=== PATIENT | female | born 1965 | race Caucasian/White ===

== ENCOUNTER 2023-04-10 17:02 | Inpatient (IN) | payer MEDICAID, OTHER ==
[~2023-04-10] VITALS: Ht 157.5 cm; Wt 104.0 kg
[~2023-04-10 17:02] MED LIST: ATOR20TA PO; GABA-1181 PO; GLIM4 PO; LEVO125T95 PO; LEVO200 PO; MELA5TAB40 PO; METF-1211 PO; NALT50TA PO; NYST15PO4 TP; OLAN5TAB52 PO; OMEG-135 PO; PALI117D IM; PARO-37 PO
[2023-04-10 18:02] LABS: BASOPHILS % (AUTO) 0.6 % (0.0-2.0); EOSINOPHILS % (AUTO) 1.4 % (1.0-6.0); HEMATOCRIT 38.3 % (36-46); HEMOGLOBIN 12.9 g/dL (12.0-16.0); LYMPHOCYTES # (AUTO) 2.3 K/uL (1.0-4.8); MEAN CORPUSCULAR HEMOGLOBIN 29.1 pg (26.0-34.0); MEAN CORPUSCULAR HGB CONC 33.8 G/dL (31.0-37.0); MEAN CORPUSCULAR VOLUME 86 fL (80-100); MONOCYTES # (AUTO) 0.6 K/uL (0.1-1.0); MONOCYTES % (AUTO) 6.3 % (2.0-9.0); NEUTROPHILS # (AUTO) 5.8 K/uL (1.8-7.7); NEUTROPHILS % (AUTO) 65.7 % (40.0-70.0); PLATELET COUNT (AUTO) 273 K/uL (150-450); RED BLOOD CELL COUNT(AUTO) 4.45 MIL/uL (4.00-5.20); RED CELL DISTRIBUTION WIDTH 14.9 % (11.5-14.5); WHITE BLOOD COUNT (AUTO) 8.8 K/uL (4.5-11.0)
[2023-04-10 18:16] LABS: COVID AG,FIA SOURCE NASAL SWAB
[2023-04-10] MEDS ORDERED: LORazepam 2 MG/ML VIAL IM ONE (18:30)
[2023-04-10] MEDS ORDERED: DiphenhydrAMINE HCL 50 MG/ML VIAL IM ONE (18:30)
[2023-04-10] MEDS ORDERED: ASPI-1444 PO (18:36)
[2023-04-10] MEDS ORDERED: OLAN5TAB77 PO (18:36)
[2023-04-10] MEDS ORDERED: ATEN-73 PO (18:36)
[2023-04-10] MEDS ORDERED: METF-81 PO (18:36)
[2023-04-10] MEDS ORDERED: ATOR20TA65 PO (18:36)
[2023-04-10] MEDS ORDERED: NPH,100I SQ (18:36)
[2023-04-10] MEDS ORDERED: LEVO200 PO (18:36)
[2023-04-10] MEDS ORDERED: INSU100V3 SQ (18:36)
[2023-04-10 18:46] LABS: SARS-COV2 (COVID) ANTIGEN,FIA Negative (Negative)
[2023-04-10 19:19] LABS: ALCOHOL, BLOOD (SERUM) < 3 mg/dL (0-10)
[2023-04-10 19:23] LABS: ANION GAP 12 mmol/L (8-16); CALCIUM, TOTAL 9.9 mg/dL (8.8-10.5); CARBON DIOXIDE 27 mmol/L (22-29); CHLORIDE 101 mmol/L (98-107); CREATININE 0.72 mg/dL (0.60-1.30); GLOMERULAR FILTR. RATE CALC > 60 mL/min (>60); GLUCOSE,RANDOM 176 mg/dL (70-110); POTASSIUM 3.8 mmol/L (3.5-5.1); SODIUM SERUM 140 mmol/L (136-145); UREA NITROGEN, BLOOD 8 mg/dL (7-18)
[2023-04-10 19:29] LABS: ALANINE AMINOTRANSFERASE 33 U/L (12-78); ALBUMIN 4.2 g/dL (3.4-5.0); ALKALINE PHOSPHATASE 109 U/L (46-116); ASPARTATE AMINOTRANSFERASE 35 U/L (15-37); BILIRUBIN,TOTAL 0.3 mg/dL (0.1-1.0); TOTAL PROTEIN, SERUM 8.6 g/dL (6.4-8.2)
[2023-04-10] MEDS ORDERED: LEVOTHYROXINE SODIUM 200 MCG TABLET PO ONE (19:30)
[2023-04-10] MEDS ORDERED: ZOLPIDEM TARTRATE 10 MG TABLET PO PRN (20:45)
[2023-04-10 23:05] VITALS: BP 144/94; PULSE 81; RESP 18; TEMP 97.9; O2SAT 97
[2023-04-10 23:21] LABS: GLUCOMETER DEV NAME(LOC) BV3S.; GLUCOSE,POINT OF CARE 168 MG/DL (70-110)
[2023-04-11 08:35] VITALS: BP 143/77; PULSE 78; RESP 16; TEMP 98.2; O2SAT 96
[2023-04-11] MEDS ORDERED: PETROLATUM,WHITE 28 GM JELLY TP PRN ×2 (09:45→15:15)
[2023-04-11] MEDS ORDERED: CloNIDine HCL 0.1 MG TABLET PO PRN (15:15)
[2023-04-11] MEDS ORDERED: MAGNESIUM HYDROXIDE SUSPENSION 30 ML UDCUP PO PRN (15:15)
[2023-04-11] MEDS ORDERED: LOPERAMIDE HCL 2 MG CAPSULE PO PRN (15:15)
[2023-04-11] MEDS ORDERED: ONDANSETRON HCL 4 MG TABLET PO PRN (15:15)
[2023-04-11] MEDS ORDERED: MAG HYDROX/ALUMINUM HYD/SIMETH ES 30 ML SUSPENSION UDCUP PO PRN (15:15)
[2023-04-11] MEDS ORDERED: ACETAMINOPHEN 325 MG TABLET PO PRN (15:15)
[2023-04-11] MEDS ORDERED: ALBUTEROL SULFATE HFA 90 MCG/PUFF 8 GM INHALER IH PRN (15:15)
[2023-04-11] MEDS ORDERED: DOCUSATE SODIUM 100 MG CAPSULE PO PRN (15:15)
[2023-04-11] MEDS ORDERED: NICOTINE 14 MG/24 HOUR PATCH TD PRN (15:15)
[2023-04-11] MEDS: MetFORMIN HCL 500 MG ER TABLET PO SCH (17:00)
[2023-04-11] MEDS ORDERED: GABAPENTIN 300 MG CAPSULE PO SCH (17:00)
[2023-04-11] MEDS: GABAPENTIN 300 MG CAPSULE PO SCH (17:14)
[2023-04-11] MEDS: GuaiFENesin/D-METHORPHAN [SUGAR-FREE] 200-20MG/10 ML SYRUP UDCUP PO PRN (17:18)
[2023-04-11] MEDS: OLANZapine 10 MG TABLET PO SCH (20:37)
[2023-04-11] MEDS: MELATONIN 5 MG TABLET PO SCH (20:38)
[2023-04-11 21:03] VITALS: BP 103/58; PULSE 80; RESP 18; TEMP 98.2; O2SAT 96
[2023-04-12] MEDS: IBUPROFEN 400 MG TABLET PO PRN (04:03)
[2023-04-12 04:04] VITALS: BP 127/70
[2023-04-12] MEDS: MetFORMIN HCL 500 MG ER TABLET PO SCH ×2 (06:26→16:29)
[2023-04-12] MEDS: GLIMEPIRIDE 4 MG TABLET PO SCH (06:26)
[2023-04-12] MEDS: LEVOTHYROXINE SODIUM 200 MCG TABLET PO SCH (06:27)
[2023-04-12] MEDS: ATENOLOL 25 MG TABLET PO SCH (08:14)
[2023-04-12] MEDS: ATORVASTATIN CALCIUM 20 MG TABLET PO SCH (08:14)
[2023-04-12] MEDS: ASPIRIN 81 MG DR TABLET PO SCH (08:14)
[2023-04-12] MEDS: LORazepam 2 MG TABLET PO PRN (08:14)
[2023-04-12] MEDS: GABAPENTIN 300 MG CAPSULE PO SCH ×2 (08:14→16:30)
[2023-04-12 08:43] LABS: HEMOGLOBIN A1C 9.3 % (3.8-5.6)
[2023-04-12 08:55] LABS: CHOL/HDL RATIO 3.5 (3.9-5.7); THYROID STIMULATING HORMONE 0.44 uIU/mL (0.36-3.74)
[2023-04-12 10:03] VITALS: BP 137/85; PULSE 70; RESP 18; TEMP 98; O2SAT 96
[2023-04-12] MEDS: GuaiFENesin/D-METHORPHAN [SUGAR-FREE] 200-20MG/10 ML SYRUP UDCUP PO PRN (20:19)
[2023-04-12] MEDS: OLANZapine 10 MG TABLET PO SCH (20:19)
[2023-04-12] MEDS: MELATONIN 5 MG TABLET PO SCH (20:19)
[2023-04-12 21:06] VITALS: BP 128/53; PULSE 75; RESP 17; TEMP 98; O2SAT 97
[2023-04-13] MEDS: GLIMEPIRIDE 4 MG TABLET PO SCH (06:22)
[2023-04-13] MEDS: MetFORMIN HCL 500 MG ER TABLET PO SCH ×2 (06:22→16:24)
[2023-04-13] MEDS: LEVOTHYROXINE SODIUM 200 MCG TABLET PO SCH (06:22)
[2023-04-13] MEDS: ASPIRIN 81 MG DR TABLET PO SCH (08:10)
[2023-04-13] MEDS: GABAPENTIN 300 MG CAPSULE PO SCH ×2 (08:10→16:15)
[2023-04-13] MEDS: QUEtiapine FUMARATE 100 MG TABLET PO PRN (08:10)
[2023-04-13] MEDS: ATORVASTATIN CALCIUM 20 MG TABLET PO SCH (08:10)
[2023-04-13] MEDS: ATENOLOL 25 MG TABLET PO SCH (08:10)
[2023-04-13] MEDS: LORazepam 2 MG TABLET PO PRN ×2 (08:10→16:15)
[2023-04-13 08:54] VITALS: BP 172/84; PULSE 77; RESP 18; TEMP 97.9; O2SAT 95
[2023-04-13] MEDS: MELATONIN 5 MG TABLET PO SCH (20:33)
[2023-04-13] MEDS: OLANZapine 10 MG TABLET PO SCH (20:33)
[2023-04-13 22:04] VITALS: BP 144/74; PULSE 73; TEMP 95.6; O2SAT 98
[2023-04-14] MEDS: MetFORMIN HCL 500 MG ER TABLET PO SCH ×2 (06:05→16:08)
[2023-04-14] MEDS: LEVOTHYROXINE SODIUM 200 MCG TABLET PO SCH (06:06)
[2023-04-14] MEDS: GLIMEPIRIDE 4 MG TABLET PO SCH (06:23)
[2023-04-14] MEDS: ATORVASTATIN CALCIUM 20 MG TABLET PO SCH (08:14)
[2023-04-14] MEDS: ATENOLOL 25 MG TABLET PO SCH (08:14)
[2023-04-14] MEDS: ASPIRIN 81 MG DR TABLET PO SCH (08:14)
[2023-04-14] MEDS: GABAPENTIN 300 MG CAPSULE PO SCH ×2 (08:14→16:08)
[2023-04-14 10:31] VITALS: BP 139/80; PULSE 96; RESP 17; TEMP 98.6; O2SAT 81
[2023-04-14 20:11] VITALS: BP 132/60; PULSE 100; RESP 17; TEMP 97.4; O2SAT 100
[2023-04-14] MEDS: MELATONIN 5 MG TABLET PO SCH (20:36)
[2023-04-14] MEDS: OLANZapine 10 MG TABLET PO SCH (20:36)
[2023-04-14] MEDS: IBUPROFEN 400 MG TABLET PO PRN (23:23)
[2023-04-14 23:24] VITALS: RESP 18
[2023-04-15 00:23] VITALS: RESP 18
[2023-04-15] MEDS: MetFORMIN HCL 500 MG ER TABLET PO SCH ×2 (06:31→16:11)
[2023-04-15] MEDS: LEVOTHYROXINE SODIUM 200 MCG TABLET PO SCH (06:31)
[2023-04-15] MEDS: GLIMEPIRIDE 4 MG TABLET PO SCH (06:33)
[2023-04-15 07:42] LABS: APPEARANCE,URINE CLEAR (CLEAR); BILIRUBIN,URINE NEGATIVE (NEGATIVE); COLOR,URINE LIGHT YELLOW (YELLOW); GLUCOSE, URINE (UA) >=1000 mg/dL (NEGATIVE); KETONES,URINE NEGATIVE (NEGATIVE); LEUKOCYTE ESTERASE ,URINE NEGATIVE (NEGATIVE); NITRATE,URINE NEGATIVE (NEGATIVE); OCCULT BLOOD,URINE NEGATIVE (NEGATIVE); PH,URINE 6.5 (5.0-8.0); PH,URINE DRUG SCREEN 6.5 (5.0-8.0); PROTEIN,URINE TRACE mg/dL (NEGATIVE); SPECIFIC GRAVITIY, URINE 1.012 (1.003-1.030); UROBILINOGEN,URINE <=1.0 mg/dL (<=1.0)
[2023-04-15 07:49] LABS: ALCOHOL, URINE DRUG SCREEN NEGATIVE (NEGATIVE); AMPHET/METH SCREEN,URINE NEGATIVE (NEGATIVE); BARBITURATE SCREEN, URINE NEGATIVE (NEGATIVE); BENZODIAZEPINES SCREEN,URINE NEGATIVE (NEGATIVE); CANNABINOID SCREEN,URINE NEGATIVE (NEGATIVE); COCAINE SCREEN,URINE NEGATIVE (NEGATIVE); METHADONE SCREEN, URINE NEGATIVE (NEGATIVE); OPIATE SCREEN,URINE NEGATIVE (NEGATIVE); PHENCYCLIDINE SCREEN,URINE NEGATIVE (NEGATIVE)
[2023-04-15 07:54] LABS: BACTERIA,URINE None Seen /HPF (None Seen); RBC,URINE None Seen /HPF (0-2); SQUAMOUS EPITHELIAL CELL,UR Few /LPF (None Seen); WBC,URINE None Seen /HPF (0-5)
[2023-04-15] MEDS: GABAPENTIN 300 MG CAPSULE PO SCH ×2 (08:25→16:11)
[2023-04-15] MEDS: ATORVASTATIN CALCIUM 20 MG TABLET PO SCH (08:25)
[2023-04-15] MEDS: ASPIRIN 81 MG DR TABLET PO SCH (08:25)
[2023-04-15] MEDS: LORazepam 2 MG TABLET PO PRN (08:25)
[2023-04-15] MEDS: QUEtiapine FUMARATE 100 MG TABLET PO PRN (08:25)
[2023-04-15] MEDS: ATENOLOL 25 MG TABLET PO SCH (08:25)
[2023-04-15 09:13] VITALS: BP 117/67; PULSE 66; RESP 17; TEMP 98.2; O2SAT 96
[2023-04-15] MEDS: MELATONIN 5 MG TABLET PO SCH (21:01)
[2023-04-15] MEDS: OLANZapine 10 MG TABLET PO SCH (21:01)
[2023-04-15 21:39] VITALS: BP 108/65; PULSE 68; RESP 18; TEMP 97.3; O2SAT 97
[2023-04-16] MEDS: LEVOTHYROXINE SODIUM 200 MCG TABLET PO SCH (06:24)
[2023-04-16] MEDS: MetFORMIN HCL 500 MG ER TABLET PO SCH ×2 (06:34→17:27)
[2023-04-16] MEDS: GLIMEPIRIDE 4 MG TABLET PO SCH (06:34)
[2023-04-16] MEDS: ATENOLOL 25 MG TABLET PO SCH (08:19)
[2023-04-16] MEDS: GABAPENTIN 300 MG CAPSULE PO SCH ×2 (08:19→17:27)
[2023-04-16] MEDS: ATORVASTATIN CALCIUM 20 MG TABLET PO SCH (08:19)
[2023-04-16] MEDS: ASPIRIN 81 MG DR TABLET PO SCH (08:19)
[2023-04-16 08:25] VITALS: BP 127/70; PULSE 73; RESP 16; TEMP 97.6; O2SAT 96
[2023-04-16] MEDS: LORazepam 2 MG TABLET PO PRN (14:23)
[2023-04-16 20:16] VITALS: BP 117/75; PULSE 75; RESP 17; TEMP 97.8
[2023-04-16] MEDS: MELATONIN 5 MG TABLET PO SCH (20:46)
[2023-04-16] MEDS: OLANZapine 10 MG TABLET PO SCH (20:46)
[2023-04-17] MEDS: MetFORMIN HCL 500 MG ER TABLET PO SCH ×2 (06:11→16:24)
[2023-04-17] MEDS: LEVOTHYROXINE SODIUM 200 MCG TABLET PO SCH (06:11)
[2023-04-17] MEDS: GLIMEPIRIDE 4 MG TABLET PO SCH (06:11)
[2023-04-17 08:06] VITALS: BP 143/69; PULSE 72; RESP 16; TEMP 97.6; O2SAT 96
[2023-04-17] MEDS: GABAPENTIN 300 MG CAPSULE PO SCH ×2 (08:22→16:24)
[2023-04-17] MEDS: ATENOLOL 25 MG TABLET PO SCH (08:23)
[2023-04-17] MEDS: ASPIRIN 81 MG DR TABLET PO SCH (08:23)
[2023-04-17] MEDS: ATORVASTATIN CALCIUM 20 MG TABLET PO SCH (08:23)
[2023-04-17] MEDS ORDERED: OLAN10TA74 PO (18:19)
[2023-04-17] MEDS ORDERED: GABA-1181 PO (18:21)
== END 2023-04-17 21:08 | disposition left against medical advice (07) | DRG 750 ==
LOC: EMS 17:03 → B3A 20:53
PROVIDERS: ADMIT Psychiatry & Neurology Child & Adolescent Psychiatry; ATTEND Psychiatry & Neurology Child & Adolescent Psychiatry
DX: F20.9 Schizophrenia, unspecified (principal); E11.42 Type 2 diabetes mellitus with diabetic polyneuropathy; E03.9 Hypothyroidism, unspecified; Z20.822 Contact with and (suspected) exposure to COVID-19; Z88.0 Allergy status to penicillin; I10 Essential (primary) hypertension; E78.5 Hyperlipidemia, unspecified; G47.00 Insomnia, unspecified; E05.80 Other thyrotoxicosis without thyrotoxic crisis or storm
CPT/HCPCS: 80053; 80061; 80307; 81001; 82962; 83036; 84439; 84443; 85025; G0480; J1200; J2060; J3535; Q9967

== ENCOUNTER 2023-05-01 08:06 | Inpatient (IN) | payer MEDICAID, OTHER ==
[~2023-05-01] VITALS: Ht 157.5 cm; Wt 105.2 kg
[~2023-05-01 08:06] MED LIST changes: +ASPI-1444 PO; +ATEN-73 PO; -ATOR20TA PO; +ATOR20TA65 PO; -LEVO125T95 PO; -MELA5TAB40 PO; -METF-1211 PO; +METF-81 PO; -NALT50TA PO; -NYST15PO4 TP; +OLAN10TA74 PO; -OLAN5TAB52 PO; -OMEG-135 PO; -PALI117D IM; -PARO-37 PO
[2023-05-01 09:16] LABS: EOSINOPHILS % (AUTO) 1.1 % (1.0-6.0); HEMATOCRIT 40.9 % (36-46); HEMOGLOBIN 13.6 g/dL (12.0-16.0); LYMPHOCYTES # (AUTO) 1.4 K/uL (1.0-4.8); MEAN CORPUSCULAR HEMOGLOBIN 28.8 pg (26.0-34.0); MEAN CORPUSCULAR HGB CONC 33.2 G/dL (31.0-37.0); MEAN CORPUSCULAR VOLUME 87 fL (80-100); MONOCYTES # (AUTO) 0.7 K/uL (0.1-1.0); MONOCYTES % (AUTO) 6.3 % (2.0-9.0); NEUTROPHILS % (AUTO) 77.6 % (40.0-70.0); PLATELET COUNT (AUTO) 291 K/uL (150-450); RED BLOOD CELL COUNT(AUTO) 4.71 MIL/uL (4.00-5.20); RED CELL DISTRIBUTION WIDTH 14.9 % (11.5-14.5); WHITE BLOOD COUNT (AUTO) 10.3 K/uL (4.5-11.0)
[2023-05-01] MEDS ORDERED: QUEtiapine FUMARATE 100 MG TABLET PO PRN (09:30)
[2023-05-01] MEDS ORDERED: ZOLPIDEM TARTRATE 10 MG TABLET PO PRN (09:30)
[2023-05-01 09:34] LABS: ALCOHOL, BLOOD (SERUM) < 3 mg/dL (0-10)
[2023-05-01 09:37] LABS: ALANINE AMINOTRANSFERASE 42 U/L (12-78); ALBUMIN 4.4 g/dL (3.4-5.0); ALKALINE PHOSPHATASE 109 U/L (46-116); ANION GAP 12 mmol/L (8-16); ASPARTATE AMINOTRANSFERASE 40 U/L (15-37); BILIRUBIN,TOTAL 0.5 mg/dL (0.1-1.0); CALCIUM, TOTAL 10.4 mg/dL (8.8-10.5); CARBON DIOXIDE 25 mmol/L (22-29); CHLORIDE 98 mmol/L (98-107); CREATININE 0.86 mg/dL (0.60-1.30); GLOMERULAR FILTR. RATE CALC > 60 mL/min (>60); POTASSIUM 4.1 mmol/L (3.5-5.1); SODIUM SERUM 135 mmol/L (136-145); TOTAL PROTEIN, SERUM 9.1 g/dL (6.4-8.2); UREA NITROGEN, BLOOD 14 mg/dL (7-18)
[2023-05-01 09:46] LABS: COVID AG,FIA SOURCE NASAL SWAB
[2023-05-01 09:47] LABS: GLUCOSE,RANDOM 417 mg/dL (70-110)
[2023-05-01 10:51] LABS: SARS-COV2 (COVID) ANTIGEN,FIA Negative (Negative)
[2023-05-01 11:43] LABS: APPEARANCE,URINE CLEAR (CLEAR); BILIRUBIN,URINE NEGATIVE (NEGATIVE); COLOR,URINE LIGHT YELLOW (YELLOW); GLUCOSE, URINE (UA) >=1000 mg/dL (NEGATIVE); KETONES,URINE NEGATIVE (NEGATIVE); LEUKOCYTE ESTERASE ,URINE NEGATIVE (NEGATIVE); NITRATE,URINE NEGATIVE (NEGATIVE); OCCULT BLOOD,URINE NEGATIVE (NEGATIVE); PROTEIN,URINE TRACE mg/dL (NEGATIVE); SPECIFIC GRAVITIY, URINE 1.037 (1.003-1.030); UROBILINOGEN,URINE <=1.0 mg/dL (<=1.0)
[2023-05-01 11:55] LABS: BACTERIA,URINE None Seen /HPF (None Seen); RBC,URINE None Seen /HPF (0-2); SQUAMOUS EPITHELIAL CELL,UR Rare /LPF (None Seen); WBC,URINE 0-2 /HPF (0-5)
[2023-05-01 11:56] LABS: ALCOHOL, URINE DRUG SCREEN NEGATIVE (NEGATIVE); AMPHET/METH SCREEN,URINE NEGATIVE (NEGATIVE); BARBITURATE SCREEN, URINE NEGATIVE (NEGATIVE); BENZODIAZEPINES SCREEN,URINE NEGATIVE (NEGATIVE); CANNABINOID SCREEN,URINE NEGATIVE (NEGATIVE); COCAINE SCREEN,URINE NEGATIVE (NEGATIVE); METHADONE SCREEN, URINE NEGATIVE (NEGATIVE); OPIATE SCREEN,URINE NEGATIVE (NEGATIVE); PHENCYCLIDINE SCREEN,URINE NEGATIVE (NEGATIVE)
[2023-05-01] MEDS: INSULIN REGULAR, HUMAN 100 UNITS/ML SQ ONE (12:44)
[2023-05-01 18:11] LABS: GLUCOMETER DEV NAME(LOC) ERT.5; GLUCOSE,POINT OF CARE 382 MG/DL (70-110)
[2023-05-01 18:11] LABS: GLUCOMETER DEV NAME(LOC) ERT.5; GLUCOSE,POINT OF CARE 392 MG/DL (70-110)
[2023-05-01] MEDS: SODIUM CHLORIDE 0.9% 1,000 ML IV ONE (19:01)
[2023-05-01] MEDS: INSULIN REGULAR, HUMAN 100 UNITS/ML IVP ONE (19:01)
[2023-05-02 06:12] LABS: GLUCOMETER DEV NAME(LOC) ERT.5; GLUCOSE,POINT OF CARE 265 MG/DL (70-110)
[2023-05-02 09:11] LABS: GLUCOMETER DEV NAME(LOC) ERT.5; GLUCOSE,POINT OF CARE 280 MG/DL (70-110)
[2023-05-02] MEDS: ACETAMINOPHEN 500 MG TABLET PO PRN (12:12)
[2023-05-02 13:49] VITALS: BP 130/60; PULSE 81; RESP 18; TEMP 98; O2SAT 97
[2023-05-02] MEDS ORDERED: GLUCAGON,HUMAN RECOMBINANT 1 MG VIAL IM PRN (14:15)
[2023-05-02] MEDS ORDERED: PNEUMOCOCCAL VACCINE POLYVALENT 0.5 ML SYRINGE [PPSV23] IM. ONE (14:15)
[2023-05-02 14:16] LABS: GLUCOMETER DEV NAME(LOC) BV3S.; GLUCOSE,POINT OF CARE 420 MG/DL (70-110)
[2023-05-02 14:26] LABS: GLUCOMETER DEV NAME(LOC) ERT.5; GLUCOSE,POINT OF CARE 318 MG/DL (70-110)
[2023-05-02] MEDS: NYSTATIN 30 GM CREAM TP SCH (16:46)
[2023-05-02] MEDS: MetFORMIN HCL 500 MG TABLET PO SCH (16:46)
[2023-05-02] MEDS: INSULIN LISPRO 100 UNITS/ML SQ PRN (16:59)
[2023-05-02] MEDS ORDERED: MetFORMIN HCL 500 MG TABLET PO SCH (17:00)
[2023-05-02 17:06] LABS: GLUCOMETER DEV NAME(LOC) BV3S.; GLUCOSE,POINT OF CARE 389 MG/DL (70-110)
[2023-05-02 20:25] VITALS: BP 128/67; PULSE 69; RESP 18; TEMP 97.1; O2SAT 95
[2023-05-03] MEDS: LEVOTHYROXINE SODIUM 200 MCG TABLET PO SCH (05:44)
[2023-05-03 05:56] LABS: GLUCOMETER DEV NAME(LOC) BV3S.; GLUCOSE,POINT OF CARE 317 MG/DL (70-110)
[2023-05-03] MEDS: GLIMEPIRIDE 4 MG TABLET PO SCH (06:36)
[2023-05-03] MEDS: GABAPENTIN 300 MG CAPSULE PO SCH (08:15)
[2023-05-03] MEDS: ATENOLOL 25 MG TABLET PO SCH (08:15)
[2023-05-03] MEDS: ASPIRIN 81 MG DR TABLET PO SCH (08:15)
[2023-05-03] MEDS: ATORVASTATIN CALCIUM 20 MG TABLET PO SCH (08:16)
[2023-05-03 09:09] VITALS: BP 106/56; PULSE 72; RESP 18; TEMP 97.7; O2SAT 95
[2023-05-03] MEDS: OLANZapine 5 MG RAPDIS TABLET PO SCH (09:31)
[2023-05-03 16:36] LABS: GLUCOMETER DEV NAME(LOC) BV3S.; GLUCOSE,POINT OF CARE 359 MG/DL (70-110)
[2023-05-03] MEDS ORDERED: NICOTINE 14 MG/24 HOUR PATCH TD PRN (20:15)
[2023-05-03] MEDS ORDERED: DOCUSATE SODIUM 100 MG CAPSULE PO PRN (20:15)
[2023-05-03] MEDS ORDERED: LOPERAMIDE HCL 2 MG CAPSULE PO PRN (20:15)
[2023-05-03] MEDS ORDERED: IBUPROFEN 400 MG TABLET PO PRN (20:15)
[2023-05-03] MEDS ORDERED: CloNIDine HCL 0.1 MG TABLET PO PRN (20:15)
[2023-05-03] MEDS ORDERED: PETROLATUM,WHITE 28 GM JELLY TP PRN (20:15)
[2023-05-03] MEDS ORDERED: ONDANSETRON HCL 4 MG TABLET PO PRN (20:15)
[2023-05-03] MEDS ORDERED: ALBUTEROL SULFATE HFA 90 MCG/PUFF 8 GM INHALER IH PRN (20:15)
[2023-05-03] MEDS ORDERED: GuaiFENesin/D-METHORPHAN [SUGAR-FREE] 200-20MG/10 ML SYRUP UDCUP PO PRN (20:15)
[2023-05-03] MEDS ORDERED: MAG HYDROX/ALUMINUM HYD/SIMETH ES 30 ML SUSPENSION UDCUP PO PRN (20:15)
[2023-05-03] MEDS ORDERED: MAGNESIUM HYDROXIDE SUSPENSION 30 ML UDCUP PO PRN (20:15)
[2023-05-03 20:44] VITALS: BP 116/69; PULSE 60; RESP 20; TEMP 97.9; O2SAT 94
[2023-05-03] MEDS: OLANZapine 10 MG RAPDIS TABLET PO SCH (21:05)
[2023-05-03 21:26] LABS: GLUCOMETER DEV NAME(LOC) BV3S.; GLUCOSE,POINT OF CARE 248 MG/DL (70-110)
[2023-05-04 05:08] LABS: HEPATITIS C AB (EIA) Non Reactive (Non Reactive)
[2023-05-04 06:21] LABS: GLUCOMETER DEV NAME(LOC) BV3S.; GLUCOSE,POINT OF CARE 270 MG/DL (70-110)
[2023-05-04 08:33] LABS: HEMOGLOBIN A1C 10.1 % (3.8-5.6); THYROID STIMULATING HORMONE 4.59 uIU/mL (0.36-3.74)
[2023-05-04 11:16] LABS: GLUCOMETER DEV NAME(LOC) BV3S.; GLUCOSE,POINT OF CARE 339 MG/DL (70-110)
[2023-05-04 15:05] VITALS: BP 129/60; PULSE 73; RESP 18; TEMP 98; O2SAT 98
[2023-05-04 16:51] LABS: GLUCOMETER DEV NAME(LOC) BV3S.; GLUCOSE,POINT OF CARE 343 MG/DL (70-110)
[2023-05-04 20:36] LABS: GLUCOMETER DEV NAME(LOC) BV3S.; GLUCOSE,POINT OF CARE 279 MG/DL (70-110)
[2023-05-04 20:47] VITALS: BP 140/73; PULSE 64; RESP 18; TEMP 97.6; O2SAT 99
[2023-05-05 06:17] LABS: GLUCOMETER DEV NAME(LOC) BV3S.; GLUCOSE,POINT OF CARE 260 MG/DL (70-110)
[2023-05-05 08:16] VITALS: BP 130/74; PULSE 84; RESP 18; TEMP 98; O2SAT 96
[2023-05-05 11:46] LABS: GLUCOMETER DEV NAME(LOC) BV3S.; GLUCOSE,POINT OF CARE 296 MG/DL (70-110)
[2023-05-05 17:01] LABS: GLUCOMETER DEV NAME(LOC) BV3S.; GLUCOSE,POINT OF CARE 353 MG/DL (70-110)
[2023-05-05 20:51] LABS: GLUCOMETER DEV NAME(LOC) BV3S.; GLUCOSE,POINT OF CARE 224 MG/DL (70-110)
[2023-05-05 21:52] VITALS: BP 130/68; PULSE 67; RESP 18; TEMP 97.2
[2023-05-06 06:17] LABS: GLUCOMETER DEV NAME(LOC) BV3S.; GLUCOSE,POINT OF CARE 289 MG/DL (70-110)
[2023-05-06 08:11] VITALS: BP 138/64; PULSE 71; RESP 18; TEMP 97.8; O2SAT 97
[2023-05-06 11:31] LABS: GLUCOMETER DEV NAME(LOC) BV3S.; GLUCOSE,POINT OF CARE 283 MG/DL (70-110)
[2023-05-06 17:00] LABS: GLUCOMETER DEV NAME(LOC) BV3S.; GLUCOSE,POINT OF CARE 300 MG/DL (70-110)
[2023-05-06] MEDS: LORazepam 2 MG TABLET PO PRN (21:13)
[2023-05-06 21:15] VITALS: BP 136/73; PULSE 57; RESP 18; TEMP 97.8; O2SAT 96
[2023-05-06 21:16] LABS: GLUCOMETER DEV NAME(LOC) BV3S.; GLUCOSE,POINT OF CARE 294 MG/DL (70-110)
[2023-05-07 06:17] LABS: GLUCOMETER DEV NAME(LOC) BV3S.; GLUCOSE,POINT OF CARE 278 MG/DL (70-110)
[2023-05-07 10:04] VITALS: BP 123/71; PULSE 71; RESP 16; TEMP 98.9; O2SAT 96
[2023-05-07 12:16] LABS: GLUCOMETER DEV NAME(LOC) BV3S.; GLUCOSE,POINT OF CARE 289 MG/DL (70-110)
[2023-05-07 13:32] VITALS: RESP 18; O2SAT 97
[2023-05-07] MEDS: ACETAMINOPHEN 325 MG TABLET PO PRN (13:32)
[2023-05-07 14:32] VITALS: RESP 16; O2SAT 96
[2023-05-07 16:41] LABS: GLUCOMETER DEV NAME(LOC) BV3S.; GLUCOSE,POINT OF CARE 313 MG/DL (70-110)
[2023-05-07 20:21] LABS: GLUCOMETER DEV NAME(LOC) BV3S.; GLUCOSE,POINT OF CARE 237 MG/DL (70-110)
[2023-05-07 20:31] VITALS: BP 137/85; PULSE 63; RESP 18; TEMP 98.2; O2SAT 94
[2023-05-08 07:01] LABS: GLUCOMETER DEV NAME(LOC) BV3S.; GLUCOSE,POINT OF CARE 299 MG/DL (70-110)
[2023-05-08 09:20] VITALS: BP 126/73; PULSE 71; RESP 17; TEMP 97.9; O2SAT 98
[2023-05-08 11:41] LABS: GLUCOMETER DEV NAME(LOC) BV3S.; GLUCOSE,POINT OF CARE 260 MG/DL (70-110)
[2023-05-08 17:12] LABS: GLUCOMETER DEV NAME(LOC) BV3S.; GLUCOSE,POINT OF CARE 340 MG/DL (70-110)
[2023-05-08 21:01] LABS: GLUCOMETER DEV NAME(LOC) BV3S.; GLUCOSE,POINT OF CARE 294 MG/DL (70-110)
[2023-05-08 21:36] VITALS: BP 118/69; PULSE 63; RESP 18; TEMP 98.1; O2SAT 97
[2023-05-09 06:31] LABS: GLUCOMETER DEV NAME(LOC) BV3S.; GLUCOSE,POINT OF CARE 273 MG/DL (70-110)
[2023-05-09 08:27] VITALS: BP 136/66; PULSE 70; RESP 16; TEMP 98; O2SAT 96
[2023-05-09] MEDS: INSULIN GLARGINE,HUM.REC.ANLOG 100 UNITS/ML SQ SCH (21:40)
[2023-05-09 21:59] VITALS: BP 103/50; PULSE 95; RESP 18; TEMP 96.7; O2SAT 61
[2023-05-10 00:50] VITALS: BP 121/69; PULSE 60; RESP 18; TEMP 98.8
[2023-05-10 03:26] LABS: GLUCOMETER DEV NAME(LOC) BV3S.; GLUCOSE,POINT OF CARE 324 MG/DL (70-110)
[2023-05-10 03:26] LABS: GLUCOMETER DEV NAME(LOC) BV3S.; GLUCOSE,POINT OF CARE 293 MG/DL (70-110)
[2023-05-10 03:26] LABS: GLUCOMETER DEV NAME(LOC) BV3S.; GLUCOSE,POINT OF CARE 273 MG/DL (70-110)
[2023-05-10 06:16] LABS: GLUCOMETER DEV NAME(LOC) BV3S.; GLUCOSE,POINT OF CARE 257 MG/DL (70-110)
[2023-05-10 08:45] VITALS: BP 141/75; PULSE 63; RESP 16; TEMP 98.1
[2023-05-10 11:31] LABS: GLUCOMETER DEV NAME(LOC) BV3S.; GLUCOSE,POINT OF CARE 295 MG/DL (70-110)
[2023-05-10 16:51] LABS: GLUCOMETER DEV NAME(LOC) BV3S.; GLUCOSE,POINT OF CARE 331 MG/DL (70-110)
== END 2023-05-10 18:22 | disposition home or self-care (01) | DRG 750 ==
LOC: EMS 08:06 → B3A 05-02 10:50
PROVIDERS: ADMIT Psychiatry & Neurology Child & Adolescent Psychiatry; ATTEND Psychiatry & Neurology Child & Adolescent Psychiatry
DX: F20.0 Paranoid schizophrenia (principal); E11.40 Type 2 diabetes mellitus with diabetic neuropathy, unspecified; E03.9 Hypothyroidism, unspecified; E11.65 Type 2 diabetes mellitus with hyperglycemia; Z20.822 Contact with and (suspected) exposure to COVID-19; E78.5 Hyperlipidemia, unspecified; F15.10 Other stimulant abuse, uncomplicated; I10 Essential (primary) hypertension; Z88.0 Allergy status to penicillin; Z88.8 Allergy status to other drugs, medicaments and biological substances
CPT/HCPCS: 80053; 80061; 80307; 81001; 82962; 83036; 84443; 85025; 86803; 87081; 87340; 99285; G0480; J1815

== ENCOUNTER 2023-11-26 13:22 | Inpatient (IN) | payer MEDICAID ==
[~2023-11-26] VITALS: Ht 162.6 cm; Wt 83.9 kg
[~2023-11-26 13:22] MED LIST changes: +GLIM-8 PO; -GLIM4 PO
[2023-11-26] MEDS: ZIPRASIDONE MESYLATE 20 MG/VIAL IM ONE (14:22)
[2023-11-26] MEDS: LORazepam 2 MG/ML VIAL IM ONE (14:22)
[2023-11-26] MEDS: DiphenhydrAMINE HCL 50 MG/ML VIAL IM ONE (14:22)
[2023-11-26 16:41] LABS: EOSINOPHILS % (AUTO) 2.3 % (1.0-6.0); HEMATOCRIT 38.8 % (36-46); HEMOGLOBIN 12.8 g/dL (12.0-16.0); LYMPHOCYTES # (AUTO) 2.8 K/uL (1.0-4.8); LYMPHOCYTES % (AUTO) 32.3 % (22.0-44.0); MEAN CORPUSCULAR HEMOGLOBIN 29.4 pg (26.0-34.0); MEAN CORPUSCULAR HGB CONC 33.1 G/dL (31.0-37.0); MEAN CORPUSCULAR VOLUME 89 fL (80-100); MONOCYTES # (AUTO) 0.6 K/uL (0.1-1.0); MONOCYTES % (AUTO) 7.5 % (2.0-9.0); NEUTROPHILS # (AUTO) 4.9 K/uL (1.8-7.7); NEUTROPHILS % (AUTO) 56.9 % (40.0-70.0); PLATELET COUNT (AUTO) 227 K/uL (150-450); RED BLOOD CELL COUNT(AUTO) 4.37 MIL/uL (4.00-5.20); RED CELL DISTRIBUTION WIDTH 14.4 % (11.5-14.5); WHITE BLOOD COUNT (AUTO) 8.6 K/uL (4.5-11.0)
[2023-11-26 16:55] LABS: ALCOHOL, BLOOD (SERUM) < 3 mg/dL (0-10)
[2023-11-26 16:57] LABS: ANION GAP 10 mmol/L (8-16); CARBON DIOXIDE 28 mmol/L (22-29); CHLORIDE 102 mmol/L (98-107); CREATININE 0.57 mg/dL (0.60-1.30); GLOMERULAR FILTR. RATE CALC > 60 mL/min (>60); GLUCOSE,RANDOM 262 mg/dL (70-110); POTASSIUM 3.3 mmol/L (3.5-5.1); SODIUM SERUM 140 mmol/L (136-145); UREA NITROGEN, BLOOD 7 mg/dL (7-18)
[2023-11-26 19:35] LABS: COVID AG,FIA SOURCE NASAL SWAB
[2023-11-26 20:19] LABS: SARS-COV2 (COVID) ANTIGEN,FIA Negative (Negative)
[2023-11-26 22:34] VITALS: O2SAT 93
[2023-11-26] MEDS: LORazepam 2 MG TABLET PO PRN (23:08)
[2023-11-27] MEDS: POTASSIUM CHLORIDE 20 MEQ ER TABLET PO ONE (06:56)
[2023-11-27] MEDS ORDERED: MAGNESIUM HYDROXIDE SUSPENSION 30 ML UDCUP PO PRN (09:15)
[2023-11-27] MEDS ORDERED: CloNIDine HCL 0.1 MG TABLET PO PRN (09:15)
[2023-11-27] MEDS ORDERED: ONDANSETRON 4 MG TABLET PO PRN (09:15)
[2023-11-27] MEDS ORDERED: DOCUSATE SODIUM 100 MG CAPSULE PO PRN (09:15)
[2023-11-27] MEDS ORDERED: NICOTINE 14 MG/24 HOUR PATCH TD PRN (09:15)
[2023-11-27] MEDS ORDERED: ALBUTEROL SULFATE HFA 90 MCG/PUFF 8 GM INHALER IH PRN (09:15)
[2023-11-27] MEDS ORDERED: MAG HYDROX/ALUMINUM HYD/SIMETH ES 30 ML SUSPENSION UDCUP PO PRN (09:15)
[2023-11-27] MEDS ORDERED: LOPERAMIDE HCL 2 MG CAPSULE PO PRN (09:15)
[2023-11-27] MEDS ORDERED: PETROLATUM,WHITE 28 GM JELLY TP PRN (09:15)
[2023-11-27] MEDS: ATORVASTATIN CALCIUM 20 MG TABLET PO SCH (09:28)
[2023-11-27] MEDS: GABAPENTIN 300 MG CAPSULE PO SCH (09:29)
[2023-11-27] MEDS: ASPIRIN 81 MG CHEWABLE TABLET PO SCH (09:29)
[2023-11-27] MEDS: IBUPROFEN 400 MG TABLET PO PRN (09:34)
[2023-11-27 09:40] VITALS: BP 128/88; PULSE 71; RESP 18; TEMP 97.4; O2SAT 96
[2023-11-27] MEDS: OLANZapine 5 MG TABLET PO SCH (12:28)
[2023-11-27] MEDS ORDERED: DEXTROSE 50%-WATER 25 GM/50 ML SYRINGE IVP PRN (14:45)
[2023-11-27 15:55] LABS: GLUCOMETER DEV NAME(LOC) 3E.C; GLUCOSE,POINT OF CARE 363 MG/DL (70-110)
[2023-11-27] MEDS: MetFORMIN HCL 500 MG ER TABLET PO SCH (17:51)
[2023-11-27] MEDS: INSULIN LISPRO 100 UNITS/ML SQ PRN (18:08)
[2023-11-27] MEDS: OLANZapine 10 MG TABLET PO SCH (20:31)
[2023-11-27 21:00] LABS: APPEARANCE,URINE CLEAR (CLEAR); BILIRUBIN,URINE NEGATIVE (NEGATIVE); COLOR,URINE COLORLESS (YELLOW); GLUCOSE, URINE (UA) >=1000 mg/dL (NEGATIVE); KETONES,URINE NEGATIVE (NEGATIVE); LEUKOCYTE ESTERASE ,URINE NEGATIVE (NEGATIVE); NITRATE,URINE NEGATIVE (NEGATIVE); OCCULT BLOOD,URINE NEGATIVE (NEGATIVE); PH,URINE 6.5 (5.0-8.0); PH,URINE DRUG SCREEN 6.5 (5.0-8.0); PROTEIN,URINE NEGATIVE (NEGATIVE); SPECIFIC GRAVITIY, URINE 1.024 (1.003-1.030); UROBILINOGEN,URINE <=1.0 mg/dL (<=1.0)
[2023-11-27 21:07] LABS: AMPHET/METH SCREEN,URINE POSITIVE (NEGATIVE); BARBITURATE SCREEN, URINE NEGATIVE (NEGATIVE); BENZODIAZEPINES SCREEN,URINE NEGATIVE (NEGATIVE); CANNABINOID SCREEN,URINE NEGATIVE (NEGATIVE); COCAINE SCREEN,URINE NEGATIVE (NEGATIVE); METHADONE SCREEN, URINE NEGATIVE (NEGATIVE); OPIATE SCREEN,URINE NEGATIVE (NEGATIVE); PHENCYCLIDINE SCREEN,URINE NEGATIVE (NEGATIVE)
[2023-11-27 21:08] LABS: ALCOHOL, URINE DRUG SCREEN NEGATIVE (NEGATIVE)
[2023-11-27 21:11] LABS: BACTERIA,URINE Rare /HPF (None Seen); RBC,URINE 0-2 /HPF (0-2); SQUAMOUS EPITHELIAL CELL,UR Few /LPF (None Seen); WBC,URINE 0-2 /HPF (0-5)
[2023-11-27 21:33] VITALS: BP 120/80; PULSE 78; RESP 19; TEMP 97.9; O2SAT 98
[2023-11-27 21:40] LABS: GLUCOMETER DEV NAME(LOC) 3E.C; GLUCOSE,POINT OF CARE 358 MG/DL (70-110)
[2023-11-28 06:50] LABS: GLUCOMETER DEV NAME(LOC) 3E.C; GLUCOSE,POINT OF CARE 234 MG/DL (70-110)
[2023-11-28] MEDS: LEVOTHYROXINE SODIUM 200 MCG TABLET PO SCH (07:07)
[2023-11-28] MEDS: GLIMEPIRIDE 4 MG TABLET PO SCH (07:08)
[2023-11-28 07:25] LABS: BASOPHILS % (AUTO) 0.7 % (0.0-2.0); HEMOGLOBIN 12.9 g/dL (12.0-16.0); LYMPHOCYTES # (AUTO) 2.7 K/uL (1.0-4.8); LYMPHOCYTES % (AUTO) 30.6 % (22.0-44.0); MEAN CORPUSCULAR HEMOGLOBIN 29.5 pg (26.0-34.0); MEAN CORPUSCULAR VOLUME 89 fL (80-100); MONOCYTES # (AUTO) 0.5 K/uL (0.1-1.0); MONOCYTES % (AUTO) 5.8 % (2.0-9.0); NEUTROPHILS # (AUTO) 5.2 K/uL (1.8-7.7); NEUTROPHILS % (AUTO) 58.9 % (40.0-70.0); PLATELET COUNT (AUTO) 216 K/uL (150-450); RED BLOOD CELL COUNT(AUTO) 4.37 MIL/uL (4.00-5.20); RED CELL DISTRIBUTION WIDTH 14.3 % (11.5-14.5); WHITE BLOOD COUNT (AUTO) 8.9 K/uL (4.5-11.0)
[2023-11-28 07:41] LABS: HEMOGLOBIN A1C 11.6 % (3.8-5.6)
[2023-11-28 07:48] LABS: ALANINE AMINOTRANSFERASE 18 U/L (12-78); ALBUMIN 3.1 g/dL (3.4-5.0); ALKALINE PHOSPHATASE 99 U/L (46-116); ANION GAP 9 mmol/L (8-16); ASPARTATE AMINOTRANSFERASE 20 U/L (15-37); BILIRUBIN,TOTAL 0.5 mg/dL (0.1-1.0); CALCIUM, TOTAL 8.7 mg/dL (8.8-10.5); CARBON DIOXIDE 26 mmol/L (22-29); CHLORIDE 101 mmol/L (98-107); CREATININE 0.62 mg/dL (0.60-1.30); GLOMERULAR FILTR. RATE CALC > 60 mL/min (>60); GLUCOSE,RANDOM 244 mg/dL (70-110); SODIUM SERUM 136 mmol/L (136-145); THYROID STIMULATING HORMONE 2.61 uIU/mL (0.36-3.74); TOTAL PROTEIN, SERUM 7.1 g/dL (6.4-8.2); UREA NITROGEN, BLOOD 8 mg/dL (7-18)
[2023-11-28 08:22] LABS: CHOL/HDL RATIO 2.8 (3.9-5.7); CHOLESTEROL 116 mg/dL (131-200); HDL CHOLESTEROL 41 mg/dL (40-60); LDL CHOL (CALC.) 56 mg/dL (0-130); TRIGLYCERIDES 97 mg/dL (15-150)
[2023-11-28] MEDS: ATENOLOL 25 MG TABLET PO SCH (08:58)
[2023-11-28 11:08] VITALS: BP 153/86; PULSE 78; RESP 19; TEMP 97.4; O2SAT 99
[2023-11-28 12:06] LABS: GLUCOMETER DEV NAME(LOC) 3E.C; GLUCOSE,POINT OF CARE 173 MG/DL (70-110)
[2023-11-28] MEDS: GuaiFENesin/D-METHORPHAN [SUGAR-FREE] 200-20MG/10 ML SYRUP UDCUP PO PRN (12:53)
[2023-11-28 17:25] LABS: GLUCOMETER DEV NAME(LOC) 3E.C; GLUCOSE,POINT OF CARE 285 MG/DL (70-110)
[2023-11-28 20:58] VITALS: BP 131/66; PULSE 64; RESP 18; O2SAT 96
[2023-11-28 21:06] LABS: GLUCOMETER DEV NAME(LOC) 3E.C; GLUCOSE,POINT OF CARE 177 MG/DL (70-110)
[2023-11-29 06:21] LABS: GLUCOMETER DEV NAME(LOC) 3E.C; GLUCOSE,POINT OF CARE 181 MG/DL (70-110)
[2023-11-29 08:38] VITALS: BP 132/71; PULSE 62; RESP 18; TEMP 98.3; O2SAT 95
[2023-11-29 11:26] LABS: GLUCOMETER DEV NAME(LOC) 3E.C; GLUCOSE,POINT OF CARE 208 MG/DL (70-110)
[2023-11-29 16:36] LABS: GLUCOMETER DEV NAME(LOC) 3E.C; GLUCOSE,POINT OF CARE 232 MG/DL (70-110)
[2023-11-29 20:24] VITALS: BP 125/61; PULSE 60; RESP 18; TEMP 98; O2SAT 96
[2023-11-29 21:05] LABS: GLUCOMETER DEV NAME(LOC) 3E.C; GLUCOSE,POINT OF CARE 185 MG/DL (70-110)
[2023-11-29] MEDS: ZOLPIDEM TARTRATE 10 MG TABLET PO PRN (21:18)
[2023-11-30 03:12] VITALS: BP 134/80; PULSE 61; RESP 18; O2SAT 97
[2023-11-30] MEDS: ACETAMINOPHEN 325 MG TABLET PO PRN (03:15)
[2023-11-30 06:35] LABS: GLUCOMETER DEV NAME(LOC) 3E.C; GLUCOSE,POINT OF CARE 216 MG/DL (70-110)
[2023-11-30 08:00] VITALS: BP 132/77; PULSE 75; RESP 17; TEMP 98.2; O2SAT 99
[2023-11-30 17:05] LABS: GLUCOMETER DEV NAME(LOC) 3E.C; GLUCOSE,POINT OF CARE 153 MG/DL (70-110)
[2023-11-30 17:30] LABS: GLUCOMETER DEV NAME(LOC) 3E.C; GLUCOSE,POINT OF CARE 227 MG/DL (70-110)
[2023-11-30 20:46] VITALS: RESP 18
[2023-11-30 20:56] LABS: GLUCOMETER DEV NAME(LOC) 3E.C; GLUCOSE,POINT OF CARE 276 MG/DL (70-110)
[2023-12-01 06:36] LABS: GLUCOMETER DEV NAME(LOC) 3E.C; GLUCOSE,POINT OF CARE 161 MG/DL (70-110)
[2023-12-01 07:31] LABS: COVID AG,FIA SOURCE NASAL SWAB
[2023-12-01 08:00] VITALS: BP 121/67; PULSE 73; RESP 18; TEMP 98.6; O2SAT 96
[2023-12-01 08:14] LABS: SARS-COV2 (COVID) ANTIGEN,FIA Negative (Negative)
[2023-12-01 11:31] LABS: GLUCOMETER DEV NAME(LOC) 3E.C; GLUCOSE,POINT OF CARE 235 MG/DL (70-110)
[2023-12-01 16:16] LABS: GLUCOMETER DEV NAME(LOC) 3E.C; GLUCOSE,POINT OF CARE 219 MG/DL (70-110)
[2023-12-01 17:41] LABS: GLUCOMETER DEV NAME(LOC) 3E.C; GLUCOSE,POINT OF CARE 182 MG/DL (70-110)
[2023-12-01 20:38] VITALS: BP 111/61; PULSE 69; RESP 18; TEMP 98; O2SAT 96
[2023-12-01 21:20] LABS: GLUCOMETER DEV NAME(LOC) 3E.C; GLUCOSE,POINT OF CARE 138 MG/DL (70-110)
[2023-12-02 06:55] LABS: GLUCOMETER DEV NAME(LOC) 3E.C; GLUCOSE,POINT OF CARE 184 MG/DL (70-110)
[2023-12-02 08:56] VITALS: BP 112/69; PULSE 63; RESP 18; TEMP 98; O2SAT 98
[2023-12-02 16:55] LABS: GLUCOMETER DEV NAME(LOC) 3E.C; GLUCOSE,POINT OF CARE 164 MG/DL (70-110)
[2023-12-02 20:35] LABS: GLUCOMETER DEV NAME(LOC) 3E.C; GLUCOSE,POINT OF CARE 147 MG/DL (70-110)
[2023-12-02 21:19] VITALS: BP 109/77; PULSE 64; RESP 18; TEMP 98.6; O2SAT 96
[2023-12-03 07:01] LABS: GLUCOMETER DEV NAME(LOC) 3E.C; GLUCOSE,POINT OF CARE 150 MG/DL (70-110)
[2023-12-03 08:00] VITALS: BP 110/57; PULSE 70; RESP 19; TEMP 98.1; O2SAT 95
[2023-12-03 11:36] LABS: GLUCOMETER DEV NAME(LOC) 3E.C; GLUCOSE,POINT OF CARE 238 MG/DL (70-110)
[2023-12-03 16:26] LABS: GLUCOMETER DEV NAME(LOC) 3E.C; GLUCOSE,POINT OF CARE 177 MG/DL (70-110)
[2023-12-03 20:32] VITALS: BP 114/79; PULSE 87; RESP 18; TEMP 97.9; O2SAT 96
[2023-12-03 21:30] LABS: GLUCOMETER DEV NAME(LOC) 3E.C; GLUCOSE,POINT OF CARE 185 MG/DL (70-110)
[2023-12-04 06:50] LABS: GLUCOMETER DEV NAME(LOC) 3E.C; GLUCOSE,POINT OF CARE 144 MG/DL (70-110)
[2023-12-04 08:33] VITALS: BP 97/50; PULSE 63; RESP 18; TEMP 98; O2SAT 96
[2023-12-04 11:50] LABS: GLUCOMETER DEV NAME(LOC) 3E.C; GLUCOSE,POINT OF CARE 156 MG/DL (70-110)
[2023-12-04 16:51] LABS: GLUCOMETER DEV NAME(LOC) 3E.C; GLUCOSE,POINT OF CARE 142 MG/DL (70-110)
[2023-12-04 20:32] VITALS: BP 105/60; PULSE 60; RESP 18; TEMP 97.6; O2SAT 95
[2023-12-04 21:31] LABS: GLUCOMETER DEV NAME(LOC) 3E.C; GLUCOSE,POINT OF CARE 154 MG/DL (70-110)
[2023-12-05 07:00] LABS: GLUCOMETER DEV NAME(LOC) 3E.C; GLUCOSE,POINT OF CARE 154 MG/DL (70-110)
[2023-12-05 09:18] VITALS: BP 115/67; PULSE 72; RESP 19; TEMP 97; O2SAT 97
[2023-12-05 12:01] LABS: GLUCOMETER DEV NAME(LOC) 3E.C; GLUCOSE,POINT OF CARE 96 MG/DL (70-110)
[2023-12-05 16:40] LABS: GLUCOMETER DEV NAME(LOC) 3E.C; GLUCOSE,POINT OF CARE 210 MG/DL (70-110)
[2023-12-05 21:29] VITALS: BP 108/68; PULSE 59; RESP 18; TEMP 96.6; O2SAT 98
[2023-12-05 21:36] LABS: GLUCOMETER DEV NAME(LOC) 3E.C; GLUCOSE,POINT OF CARE 120 MG/DL (70-110)
[2023-12-06 07:05] LABS: GLUCOMETER DEV NAME(LOC) 3E.C; GLUCOSE,POINT OF CARE 215 MG/DL (70-110)
[2023-12-06 09:10] VITALS: BP 118/66; PULSE 63; RESP 17; TEMP 98.6; O2SAT 99
[2023-12-06 11:40] LABS: GLUCOMETER DEV NAME(LOC) 3E.C; GLUCOSE,POINT OF CARE 214 MG/DL (70-110)
[2023-12-06 12:51] VITALS: BP 114/74; PULSE 69; RESP 18
[2023-12-06 16:50] LABS: GLUCOMETER DEV NAME(LOC) 3E.C; GLUCOSE,POINT OF CARE 168 MG/DL (70-110)
[2023-12-06 20:21] LABS: GLUCOMETER DEV NAME(LOC) 3E.C; GLUCOSE,POINT OF CARE 141 MG/DL (70-110)
[2023-12-06 20:47] VITALS: BP 116/72; PULSE 68; RESP 18; TEMP 97.8
[2023-12-07 06:26] LABS: GLUCOMETER DEV NAME(LOC) 3E.C; GLUCOSE,POINT OF CARE 153 MG/DL (70-110)
[2023-12-07 08:32] VITALS: BP 124/80; PULSE 83; RESP 18; TEMP 97.2; O2SAT 100
[2023-12-07 11:26] LABS: GLUCOMETER DEV NAME(LOC) 3E.C; GLUCOSE,POINT OF CARE 103 MG/DL (70-110)
[2023-12-07 17:01] LABS: GLUCOMETER DEV NAME(LOC) 3E.C; GLUCOSE,POINT OF CARE 154 MG/DL (70-110)
[2023-12-07 20:20] LABS: GLUCOMETER DEV NAME(LOC) 3E.C; GLUCOSE,POINT OF CARE 180 MG/DL (70-110)
[2023-12-07 20:52] VITALS: BP 118/74; PULSE 72; RESP 18; TEMP 97.6
[2023-12-08 06:15] LABS: GLUCOMETER DEV NAME(LOC) 3E.C; GLUCOSE,POINT OF CARE 143 MG/DL (70-110)
[2023-12-08 09:25] VITALS: BP 114/77; PULSE 72; RESP 19; TEMP 97.3; O2SAT 99
[2023-12-08 11:40] LABS: GLUCOMETER DEV NAME(LOC) 3E.C; GLUCOSE,POINT OF CARE 128 MG/DL (70-110)
[2023-12-08 17:10] LABS: GLUCOMETER DEV NAME(LOC) 3E.C; GLUCOSE,POINT OF CARE 158 MG/DL (70-110)
[2023-12-08 21:04] VITALS: BP 96/55; PULSE 55; RESP 18; TEMP 97.2; O2SAT 95
[2023-12-08 21:45] LABS: GLUCOMETER DEV NAME(LOC) 3E.C; GLUCOSE,POINT OF CARE 115 MG/DL (70-110)
[2023-12-09 06:41] LABS: GLUCOMETER DEV NAME(LOC) 3E.C; GLUCOSE,POINT OF CARE 170 MG/DL (70-110)
[2023-12-09 08:00] VITALS: BP 116/69; PULSE 60; RESP 18; TEMP 97; O2SAT 99
[2023-12-09 11:36] LABS: GLUCOMETER DEV NAME(LOC) 3E.C; GLUCOSE,POINT OF CARE 116 MG/DL (70-110)
[2023-12-09 16:31] LABS: GLUCOMETER DEV NAME(LOC) 3E.C; GLUCOSE,POINT OF CARE 131 MG/DL (70-110)
[2023-12-09 21:31] LABS: GLUCOMETER DEV NAME(LOC) 3E.C; GLUCOSE,POINT OF CARE 156 MG/DL (70-110)
[2023-12-09 21:48] VITALS: BP 121/68; PULSE 66; RESP 18; TEMP 98.3; O2SAT 100
[2023-12-10 07:15] LABS: GLUCOMETER DEV NAME(LOC) 3E.C; GLUCOSE,POINT OF CARE 123 MG/DL (70-110)
[2023-12-10 08:05] VITALS: BP 94/54; PULSE 66; RESP 16; TEMP 98; O2SAT 95
[2023-12-10 11:51] LABS: GLUCOMETER DEV NAME(LOC) 3E.C; GLUCOSE,POINT OF CARE 238 MG/DL (70-110)
[2023-12-10 17:36] LABS: GLUCOMETER DEV NAME(LOC) 3E.C; GLUCOSE,POINT OF CARE 175 MG/DL (70-110)
[2023-12-10 20:22] VITALS: BP 115/73; PULSE 69; RESP 18; TEMP 97.7; O2SAT 97
[2023-12-10 21:35] LABS: GLUCOMETER DEV NAME(LOC) 3E.C; GLUCOSE,POINT OF CARE 111 MG/DL (70-110)
[2023-12-11 07:00] LABS: GLUCOMETER DEV NAME(LOC) 3E.C; GLUCOSE,POINT OF CARE 138 MG/DL (70-110)
[2023-12-11] MEDS: ATENOLOL 25 MG TABLET PO SCH (08:29)
[2023-12-11 09:02] VITALS: BP 107/62; PULSE 60; RESP 17; TEMP 97.6; O2SAT 98
[2023-12-11 11:36] LABS: GLUCOMETER DEV NAME(LOC) 3E.C; GLUCOSE,POINT OF CARE 177 MG/DL (70-110)
[2023-12-11 17:50] LABS: GLUCOMETER DEV NAME(LOC) 3E.C; GLUCOSE,POINT OF CARE 267 MG/DL (70-110)
[2023-12-11 21:10] VITALS: RESP 18
[2023-12-11 21:31] LABS: GLUCOMETER DEV NAME(LOC) 3E.C; GLUCOSE,POINT OF CARE 160 MG/DL (70-110)
[2023-12-12 06:35] LABS: GLUCOMETER DEV NAME(LOC) 3E.C; GLUCOSE,POINT OF CARE 151 MG/DL (70-110)
[2023-12-12 09:00] VITALS: BP 106/58; PULSE 67; RESP 17; TEMP 97.9; O2SAT 97
[2023-12-12 11:24] LABS: COVID AG,FIA SOURCE NASAL SWAB
[2023-12-12 11:50] LABS: GLUCOMETER DEV NAME(LOC) 3E.C; GLUCOSE,POINT OF CARE 162 MG/DL (70-110)
[2023-12-12 12:20] LABS: SARS-COV2 (COVID) ANTIGEN,FIA Positive (Negative)
[2023-12-12] MEDS: AZITHROMYCIN 500 MG TABLET PO SCH (13:28)
[2023-12-12] MEDS: DEXAMETHASONE 4 MG TABLET PO SCH (13:28)
[2023-12-12 16:02] VITALS: RESP 16; TEMP 97.7
[2023-12-12 17:26] LABS: GLUCOMETER DEV NAME(LOC) 3E.C; GLUCOSE,POINT OF CARE 218 MG/DL (70-110)
[2023-12-12 21:26] LABS: GLUCOMETER DEV NAME(LOC) 3E.C; GLUCOSE,POINT OF CARE 257 MG/DL (70-110)
[2023-12-12 21:35] VITALS: BP 140/80; PULSE 65; RESP 18; TEMP 98.6; O2SAT 98
[2023-12-13] VITALS: BP 133/67; PULSE 67; RESP 18; TEMP 97.9; O2SAT 96
[2023-12-13 04:04] VITALS: BP 138/78; PULSE 66; RESP 18; TEMP 97.8; O2SAT 96
[2023-12-13 06:21] LABS: GLUCOMETER DEV NAME(LOC) 3E.C; GLUCOSE,POINT OF CARE 289 MG/DL (70-110)
[2023-12-13 08:30] VITALS: BP 126/74; PULSE 71; RESP 18; TEMP 98.2; O2SAT 100
[2023-12-13] MEDS: DEXAMETHASONE 2 MG TABLET PO SCH (08:49)
[2023-12-13 11:36] LABS: GLUCOMETER DEV NAME(LOC) 3E.C; GLUCOSE,POINT OF CARE 259 MG/DL (70-110)
[2023-12-13 12:27] VITALS: BP 130/76; PULSE 69; RESP 17; TEMP 97.9; O2SAT 98
[2023-12-13 16:00] VITALS: BP 131/72; PULSE 67; RESP 18; TEMP 97.6; O2SAT 96
[2023-12-13 17:06] LABS: GLUCOMETER DEV NAME(LOC) 3E.C; GLUCOSE,POINT OF CARE 372 MG/DL (70-110)
[2023-12-13 20:00] VITALS: BP 128/78; PULSE 78; RESP 19; TEMP 97.5; O2SAT 97
[2023-12-13 20:25] LABS: GLUCOMETER DEV NAME(LOC) 3E.C; GLUCOSE,POINT OF CARE 317 MG/DL (70-110)
[2023-12-14] VITALS: RESP 18
[2023-12-14 02:20] VITALS: RESP 20
[2023-12-14 04:30] VITALS: BP 132/73; PULSE 85; RESP 19; TEMP 98
[2023-12-14 06:16] LABS: GLUCOMETER DEV NAME(LOC) 3E.C; GLUCOSE,POINT OF CARE 190 MG/DL (70-110)
[2023-12-14 10:09] VITALS: BP 106/75; PULSE 64; RESP 17; TEMP 96.9; O2SAT 98
[2023-12-14 11:31] LABS: GLUCOMETER DEV NAME(LOC) 3E.C; GLUCOSE,POINT OF CARE 175 MG/DL (70-110)
[2023-12-14 17:40] LABS: GLUCOMETER DEV NAME(LOC) 3E.C; GLUCOSE,POINT OF CARE 294 MG/DL (70-110)
[2023-12-14 18:51] VITALS: BP 129/78; PULSE 69; RESP 17; TEMP 98; O2SAT 99
[2023-12-14 20:27] VITALS: RESP 18
[2023-12-14] MEDS: INSULIN LISPRO 100 UNITS/ML SQ ONE (21:11)
[2023-12-14 21:26] LABS: GLUCOMETER DEV NAME(LOC) 3E.C; GLUCOSE,POINT OF CARE 406 MG/DL (70-110)
[2023-12-15 00:19] VITALS: RESP 18
[2023-12-15 05:32] VITALS: RESP 18
[2023-12-15 07:16] LABS: GLUCOMETER DEV NAME(LOC) 3E.C; GLUCOSE,POINT OF CARE 186 MG/DL (70-110)
[2023-12-15 08:53] VITALS: BP 111/57; PULSE 58; RESP 18; TEMP 97.7; O2SAT 99
[2023-12-15 11:51] LABS: GLUCOMETER DEV NAME(LOC) 3E.C; GLUCOSE,POINT OF CARE 282 MG/DL (70-110)
[2023-12-15 12:20] VITALS: BP 115/64; PULSE 66; RESP 18; TEMP 97.6; O2SAT 98
[2023-12-15 16:45] LABS: GLUCOMETER DEV NAME(LOC) 3E.C; GLUCOSE,POINT OF CARE 354 MG/DL (70-110)
[2023-12-15 17:02] VITALS: BP 119/68; PULSE 63; RESP 17; TEMP 97.9; O2SAT 97
[2023-12-15 20:05] VITALS: RESP 18
[2023-12-15 22:05] LABS: GLUCOMETER DEV NAME(LOC) 3E.C; GLUCOSE,POINT OF CARE 307 MG/DL (70-110)
[2023-12-16 00:01] VITALS: RESP 18
[2023-12-16 04:00] VITALS: BP 110/60; PULSE 52; RESP 18; TEMP 97.2; O2SAT 96
[2023-12-16 06:56] LABS: GLUCOMETER DEV NAME(LOC) 3E.C; GLUCOSE,POINT OF CARE 174 MG/DL (70-110)
[2023-12-16 09:34] VITALS: BP 125/63; PULSE 63; RESP 19; TEMP 96.3; O2SAT 97
[2023-12-16 11:26] LABS: GLUCOMETER DEV NAME(LOC) 3E.C; GLUCOSE,POINT OF CARE 257 MG/DL (70-110)
[2023-12-16 12:00] VITALS: BP 122/69; PULSE 69; RESP 18; TEMP 97.9; O2SAT 97
[2023-12-16 16:44] VITALS: BP 118/65; PULSE 65; RESP 18; TEMP 97.1; O2SAT 97
[2023-12-16 17:31] LABS: GLUCOMETER DEV NAME(LOC) 3E.C; GLUCOSE,POINT OF CARE 348 MG/DL (70-110)
[2023-12-16 20:15] LABS: GLUCOMETER DEV NAME(LOC) 3E.C; GLUCOSE,POINT OF CARE 360 MG/DL (70-110)
[2023-12-16 21:14] VITALS: BP 119/59; PULSE 54; RESP 18; TEMP 97; O2SAT 97
[2023-12-17 01:53] VITALS: BP 116/62; PULSE 55; RESP 18; TEMP 96.9; O2SAT 97
[2023-12-17 06:41] LABS: GLUCOMETER DEV NAME(LOC) 3E.C; GLUCOSE,POINT OF CARE 218 MG/DL (70-110)
[2023-12-17 06:46] VITALS: BP 123/70; PULSE 68; RESP 18; TEMP 97.1; O2SAT 98
[2023-12-17 09:02] VITALS: BP 113/66; PULSE 52; RESP 17; TEMP 97.6; O2SAT 99
[2023-12-17 11:52] LABS: COVID AG,FIA SOURCE NASAL SWAB
[2023-12-17 12:00] VITALS: BP 111/71; PULSE 67; RESP 17; TEMP 98
[2023-12-17 12:19] LABS: SARS-COV2 (COVID) ANTIGEN,FIA Negative (Negative)
[2023-12-17 12:40] LABS: GLUCOMETER DEV NAME(LOC) 3E.C; GLUCOSE,POINT OF CARE 351 MG/DL (70-110)
[2023-12-17] MEDS: QUEtiapine FUMARATE 25 MG TABLET PO PRN (13:26)
[2023-12-17 16:00] VITALS: BP 131/69; PULSE 67; RESP 16; TEMP 98.1
[2023-12-17 17:45] LABS: GLUCOMETER DEV NAME(LOC) 3E.C; GLUCOSE,POINT OF CARE 320 MG/DL (70-110)
[2023-12-17 20:17] VITALS: BP 115/70; PULSE 89; RESP 18; TEMP 97; O2SAT 96
[2023-12-17 20:36] LABS: GLUCOMETER DEV NAME(LOC) 3E.C; GLUCOSE,POINT OF CARE 294 MG/DL (70-110)
[2023-12-18 00:01] VITALS: RESP 18
[2023-12-18 04:05] VITALS: RESP 18
[2023-12-18 06:36] LABS: GLUCOMETER DEV NAME(LOC) 3E.C; GLUCOSE,POINT OF CARE 167 MG/DL (70-110)
[2023-12-18 09:20] VITALS: BP 101/61; PULSE 66; RESP 18; TEMP 97.5; O2SAT 97
[2023-12-18 11:35] LABS: GLUCOMETER DEV NAME(LOC) 3E.C; GLUCOSE,POINT OF CARE 221 MG/DL (70-110)
[2023-12-18 12:00] VITALS: BP 123/72; PULSE 79; RESP 18; TEMP 97.8; O2SAT 96
[2023-12-18 17:31] LABS: GLUCOMETER DEV NAME(LOC) 3E.C; GLUCOSE,POINT OF CARE 362 MG/DL (70-110)
[2023-12-18 20:15] LABS: GLUCOMETER DEV NAME(LOC) 3E.C; GLUCOSE,POINT OF CARE 376 MG/DL (70-110)
[2023-12-18 21:08] VITALS: BP 108/70; PULSE 99; RESP 18; TEMP 97.4; O2SAT 100
[2023-12-19 06:11] LABS: GLUCOMETER DEV NAME(LOC) 3E.C; GLUCOSE,POINT OF CARE 166 MG/DL (70-110)
[2023-12-19 08:00] VITALS: BP 119/69; PULSE 84; RESP 18; TEMP 98.1
[2023-12-19 11:50] LABS: GLUCOMETER DEV NAME(LOC) 3E.C; GLUCOSE,POINT OF CARE 184 MG/DL (70-110)
[2023-12-19 17:15] LABS: GLUCOMETER DEV NAME(LOC) 3E.C; GLUCOSE,POINT OF CARE 340 MG/DL (70-110)
[2023-12-19 21:01] LABS: GLUCOMETER DEV NAME(LOC) 3E.C; GLUCOSE,POINT OF CARE 249 MG/DL (70-110)
[2023-12-19 21:39] VITALS: BP 115/69; PULSE 96; RESP 18; TEMP 97.2; O2SAT 96
[2023-12-20 06:06] LABS: GLUCOMETER DEV NAME(LOC) 3E.C; GLUCOSE,POINT OF CARE 202 MG/DL (70-110)
[2023-12-20 09:11] VITALS: BP 100/59; PULSE 70; RESP 17; TEMP 96.5; O2SAT 96
[2023-12-20 11:30] LABS: GLUCOMETER DEV NAME(LOC) 3E.C; GLUCOSE,POINT OF CARE 151 MG/DL (70-110)
[2023-12-20 20:40] LABS: GLUCOMETER DEV NAME(LOC) 3E.C; GLUCOSE,POINT OF CARE 179 MG/DL (70-110)
[2023-12-20 20:46] VITALS: BP 102/63; PULSE 52; RESP 16; TEMP 97.2; O2SAT 96
[2023-12-21 06:26] LABS: GLUCOMETER DEV NAME(LOC) 3E.C; GLUCOSE,POINT OF CARE 121 MG/DL (70-110)
[2023-12-21 08:00] VITALS: BP 100/64; PULSE 65; RESP 18; TEMP 98; O2SAT 97
[2023-12-21 12:15] LABS: GLUCOMETER DEV NAME(LOC) 3E.C; GLUCOSE,POINT OF CARE 161 MG/DL (70-110)
[2023-12-21 17:46] LABS: GLUCOMETER DEV NAME(LOC) 3E.C; GLUCOSE,POINT OF CARE 157 MG/DL (70-110)
[2023-12-21 20:56] LABS: GLUCOMETER DEV NAME(LOC) 3E.C; GLUCOSE,POINT OF CARE 246 MG/DL (70-110)
[2023-12-22 00:24] VITALS: BP 112/68; PULSE 69; RESP 19; TEMP 97.5; O2SAT 96
[2023-12-22 06:26] LABS: GLUCOMETER DEV NAME(LOC) 3E.C; GLUCOSE,POINT OF CARE 160 MG/DL (70-110)
[2023-12-22 08:42] VITALS: BP 99/55; PULSE 78; RESP 18; TEMP 98.2; O2SAT 97
[2023-12-22 11:35] LABS: GLUCOMETER DEV NAME(LOC) 3E.C; GLUCOSE,POINT OF CARE 224 MG/DL (70-110)
[2023-12-22 17:21] LABS: GLUCOMETER DEV NAME(LOC) 3E.C; GLUCOSE,POINT OF CARE 234 MG/DL (70-110)
[2023-12-22 20:30] VITALS: BP 98/64; PULSE 60; RESP 18; TEMP 97.1; O2SAT 98
[2023-12-22 20:55] LABS: GLUCOMETER DEV NAME(LOC) 3E.C; GLUCOSE,POINT OF CARE 278 MG/DL (70-110)
[2023-12-23 06:46] LABS: GLUCOMETER DEV NAME(LOC) 3E.C; GLUCOSE,POINT OF CARE 167 MG/DL (70-110)
[2023-12-23 08:47] VITALS: BP 118/67; PULSE 63; RESP 19; TEMP 96.7; O2SAT 98
[2023-12-23 09:00] VITALS: BP 125/70; PULSE 69
[2023-12-23 12:01] LABS: GLUCOMETER DEV NAME(LOC) 3E.C; GLUCOSE,POINT OF CARE 167 MG/DL (70-110)
[2023-12-23 16:25] LABS: GLUCOMETER DEV NAME(LOC) 3E.C; GLUCOSE,POINT OF CARE 245 MG/DL (70-110)
[2023-12-23 20:26] LABS: GLUCOMETER DEV NAME(LOC) 3E.C; GLUCOSE,POINT OF CARE 184 MG/DL (70-110)
[2023-12-23 20:57] VITALS: RESP 18
[2023-12-24 06:45] LABS: GLUCOMETER DEV NAME(LOC) 3E.C; GLUCOSE,POINT OF CARE 187 MG/DL (70-110)
[2023-12-24 08:42] VITALS: BP 106/74; PULSE 65; RESP 18; TEMP 97.2; O2SAT 98
[2023-12-24 11:46] LABS: GLUCOMETER DEV NAME(LOC) 3E.C; GLUCOSE,POINT OF CARE 227 MG/DL (70-110)
[2023-12-24 16:25] LABS: GLUCOMETER DEV NAME(LOC) 3E.C; GLUCOSE,POINT OF CARE 219 MG/DL (70-110)
[2023-12-24 20:20] LABS: GLUCOMETER DEV NAME(LOC) 3E.C; GLUCOSE,POINT OF CARE 197 MG/DL (70-110)
[2023-12-24 20:21] VITALS: BP 120/84; PULSE 80; RESP 18; TEMP 97.6; O2SAT 98
[2023-12-25 05:36] LABS: GLUCOMETER DEV NAME(LOC) 3E.C; GLUCOSE,POINT OF CARE 251 MG/DL (70-110)
[2023-12-25 08:30] VITALS: BP 108/55; PULSE 58; RESP 16; TEMP 97.3; O2SAT 98
[2023-12-25 11:36] LABS: GLUCOMETER DEV NAME(LOC) 3E.C; GLUCOSE,POINT OF CARE 183 MG/DL (70-110)
[2023-12-25 16:35] LABS: GLUCOMETER DEV NAME(LOC) 3E.C; GLUCOSE,POINT OF CARE 217 MG/DL (70-110)
[2023-12-25 20:19] VITALS: BP 93/60; PULSE 73; RESP 18; TEMP 96.9; O2SAT 99
[2023-12-25 21:26] LABS: GLUCOMETER DEV NAME(LOC) 3E.C; GLUCOSE,POINT OF CARE 199 MG/DL (70-110)
[2023-12-26 07:11] LABS: GLUCOMETER DEV NAME(LOC) 3E.C; GLUCOSE,POINT OF CARE 199 MG/DL (70-110)
[2023-12-26 08:15] VITALS: BP 147/59; PULSE 68; RESP 17; TEMP 97.5; O2SAT 97
[2023-12-26] MEDS ORDERED: LEVO200 PO (09:17)
[2023-12-26] MEDS ORDERED: METF-81 PO (09:17)
[2023-12-26] MEDS ORDERED: OLAN5TAB52 PO (09:17)
[2023-12-26] MEDS ORDERED: ATOR20TA65 PO (09:17)
[2023-12-26] MEDS ORDERED: OLAN10TA74 PO (09:17)
[2023-12-26] MEDS ORDERED: ASPI-1450 PO (09:17)
[2023-12-26] MEDS ORDERED: ATEN-73 PO (09:17)
[2023-12-26] MEDS ORDERED: GABA-1181 PO (09:17)
[2023-12-26] MEDS ORDERED: GLIM-8 PO (09:17)
== END 2023-12-26 12:56 | disposition home or self-care (01) | DRG 750 ==
LOC: EMS 13:22 → 3EC 11-27 04:07
PROVIDERS: ADMIT Psychiatry & Neurology Psychiatry; ATTEND Psychiatry & Neurology Child & Adolescent Psychiatry
PROC: GZ56ZZZ Individual Psychotherapy, Supportive (ICD-10-PCS; 2023-11-27)
PROC: GZ52ZZZ Individual Psychotherapy, Cognitive (ICD-10-PCS; 2023-11-28)
PROC: GZHZZZZ Group Psychotherapy (ICD-10-PCS; principal; 2023-11-30)
DX: F20.0 Paranoid schizophrenia (principal); U07.1 COVID-19; E11.9 Type 2 diabetes mellitus without complications; E03.9 Hypothyroidism, unspecified; I10 Essential (primary) hypertension; Z20.822 Contact with and (suspected) exposure to COVID-19; F15.10 Other stimulant abuse, uncomplicated; E78.5 Hyperlipidemia, unspecified; Z88.0 Allergy status to penicillin; Z86.16 Personal history of COVID-19; Z79.82 Long term (current) use of aspirin; Z88.8 Allergy status to other drugs, medicaments and biological substances; Z79.899 Other long term (current) drug therapy
CPT/HCPCS: 71046; 80048; 80053; 80061; 80307; 81001; 82962; 83036; 84443; 85025; 87081; 99285; G0480; J1200; J1815; J2060; J3486; J8540; 36415-L1; 36415-TC

== ENCOUNTER 2024-06-27 13:52 | Emergency (ER) | payer MEDICAID, OTHER ==
[~2024-06-27] VITALS: Ht 157.5 cm; Wt 91.3 kg
[~2024-06-27 13:52] MED LIST changes: -ASPI-1444 PO; +ASPI-1450 PO; +OLAN5TAB52 PO
[2024-06-27 14:03] VITALS: TEMP 98.2
[2024-06-27 14:39] LABS: BASOPHILS % (AUTO) 1.3 % (0.0-2.0); EOSINOPHILS % (AUTO) 2.2 % (1.0-6.0); HEMOGLOBIN 13.2 g/dL (12.0-16.0); LYMPHOCYTES # (AUTO) 2.8 K/uL (1.0-4.8); LYMPHOCYTES % (AUTO) 32.1 % (22.0-44.0); MEAN CORPUSCULAR HEMOGLOBIN 29.6 pg (26.0-34.0); MEAN CORPUSCULAR HGB CONC 33.9 G/dL (31.0-37.0); MEAN CORPUSCULAR VOLUME 88 fL (80-100); MONOCYTES # (AUTO) 0.6 K/uL (0.1-1.0); MONOCYTES % (AUTO) 6.7 % (2.0-9.0); NEUTROPHILS % (AUTO) 57.7 % (40.0-70.0); PLATELET COUNT (AUTO) 259 K/uL (150-450); RED BLOOD CELL COUNT(AUTO) 4.46 MIL/uL (4.00-5.20); RED CELL DISTRIBUTION WIDTH 14.1 % (11.5-14.5); WHITE BLOOD COUNT (AUTO) 8.7 K/uL (4.5-11.0)
[2024-06-27 14:44] LABS: APPEARANCE,URINE CLEAR (CLEAR); BILIRUBIN,URINE NEGATIVE (NEGATIVE); COLOR,URINE LIGHT YELLOW (YELLOW); GLUCOSE, URINE (UA) 300-500 mg/dL (NEGATIVE); KETONES,URINE NEGATIVE (NEGATIVE); LEUKOCYTE ESTERASE ,URINE NEGATIVE (NEGATIVE); NITRATE,URINE NEGATIVE (NEGATIVE); OCCULT BLOOD,URINE NEGATIVE (NEGATIVE); PH,URINE 6.5 (5.0-8.0); PH,URINE DRUG SCREEN 6.5 (5.0-8.0); PROTEIN,URINE NEGATIVE (NEGATIVE); SPECIFIC GRAVITIY, URINE 1.022 (1.003-1.030); UROBILINOGEN,URINE <=1.0 mg/dL (<=1.0)
[2024-06-27 14:50] LABS: AMPHET/METH SCREEN,URINE NEGATIVE (NEGATIVE); BARBITURATE SCREEN, URINE NEGATIVE (NEGATIVE); BENZODIAZEPINES SCREEN,URINE NEGATIVE (NEGATIVE); CANNABINOID SCREEN,URINE NEGATIVE (NEGATIVE); COCAINE SCREEN,URINE NEGATIVE (NEGATIVE); METHADONE SCREEN, URINE NEGATIVE (NEGATIVE); OPIATE SCREEN,URINE NEGATIVE (NEGATIVE); PHENCYCLIDINE SCREEN,URINE NEGATIVE (NEGATIVE)
[2024-06-27 14:51] LABS: ALCOHOL, URINE DRUG SCREEN NEGATIVE (NEGATIVE)
[2024-06-27 14:52] LABS: ANION GAP 7 mmol/L (8-16); CALCIUM, TOTAL 9.1 mg/dL (8.8-10.5); CARBON DIOXIDE 30 mmol/L (22-29); CHLORIDE 101 mmol/L (98-107); CREATININE 0.77 mg/dL (0.60-1.30); GLOMERULAR FILTR. RATE CALC > 60 mL/min (>60); GLUCOSE,RANDOM 196 mg/dL (70-110); POTASSIUM 3.8 mmol/L (3.5-5.1); SODIUM SERUM 138 mmol/L (136-145); UREA NITROGEN, BLOOD 17 mg/dL (7-18)
[2024-06-27 15:02] LABS: ALCOHOL, BLOOD (SERUM) < 3 mg/dL (0-10)
[2024-06-27 15:05] LABS: BACTERIA,URINE None Seen /HPF (None Seen); RBC,URINE None Seen /HPF (0-2); SQUAMOUS EPITHELIAL CELL,UR Rare /LPF (None Seen); WBC,URINE None Seen /HPF (0-5)
[2024-06-27 15:40] LABS: TROPONIN I-HIGH SENSITIVITY 4 ng/L (<51)
[2024-06-27 15:55] LABS: COVID AG,FIA SOURCE NASAL SWAB
[2024-06-27 16:14] LABS: SARS-COV2 (COVID) ANTIGEN,FIA Negative (Negative)
[2024-06-27 17:15] VITALS: BP 133/74; PULSE 69; RESP 18; O2SAT 96
== END 2024-06-27 17:51 | disposition admitted as inpatient to this hospital (09) ==
LOC: EMS 13:52
DX: F20.0 Paranoid schizophrenia (principal); E11.65 Type 2 diabetes mellitus with hyperglycemia; Z88.0 Allergy status to penicillin; Z79.82 Long term (current) use of aspirin; Z79.84 Long term (current) use of oral hypoglycemic drugs; Z79.899 Other long term (current) drug therapy; Z20.822 Contact with and (suspected) exposure to COVID-19
CPT/HCPCS: 99285; 71045; 87426; 80048; 84484; 85025; 36415; 93005; 80307; 81001; G0480

== ENCOUNTER 2024-12-27 12:38 | Inpatient (IN) | payer MEDICAID, OTHER ==
[~2024-12-27] VITALS: Ht 157.5 cm; Wt 83.0 kg
[~2024-12-27 12:38] MED LIST changes: +ATEN-187 PO; -ATOR20TA65 PO; +BENZ-247 PO; +LISI2.5T13 PO; +SITA25 PO
[2024-12-27] MEDS ORDERED: ATOR20TA65 PO (13:25)
[2024-12-27] MEDS: LORazepam 2 MG/ML VIAL IM ONE (13:28)
[2024-12-27 13:32] LABS: COVID AG,FIA SOURCE NASAL SWAB
[2024-12-27 14:08] LABS: SARS-COV2 (COVID) ANTIGEN,FIA Negative (Negative)
[2024-12-27 14:19] LABS: PLATELET COUNT (AUTO) 255 K/uL (150-450); RED BLOOD CELL COUNT(AUTO) 3.95 MIL/uL (4.00-5.20); RED CELL DISTRIBUTION WIDTH 14.0 % (11.5-14.5); WHITE BLOOD COUNT (AUTO) 8.8 K/uL (4.5-11.0)
[2024-12-27 14:28] LABS: CALCIUM, TOTAL 9.2 mg/dL (8.8-10.5); CREATININE 0.88 mg/dL (0.60-1.30); GLOMERULAR FILTR. RATE CALC > 60 mL/min (>60); GLUCOSE,RANDOM 311 mg/dL (70-110); SODIUM SERUM 138 mmol/L (136-145); UREA NITROGEN, BLOOD 11 mg/dL (7-18)
[2024-12-28] MEDS ORDERED: ZOLPIDEM TARTRATE 10 MG TABLET PO PRN (02:30)
[2024-12-28 03:05] VITALS: O2SAT 98
[2024-12-28 14:06] LABS: GLUCOMETER DEV NAME(LOC) BV3N.2; GLUCOSE,POINT OF CARE 303 MG/DL (70-110)
[2024-12-28 14:27] VITALS: BP 112/62; PULSE 77; RESP 18; TEMP 99; O2SAT 99
[2024-12-28] MEDS ORDERED: INFLUENZA VIRUS VACCINE TVS (6MO+) 2025-26/PF 45 MCG/0.5 ML SYRINGE IM. ONE (15:00)
[2024-12-28] MEDS: GLIMEPIRIDE 2 MG TABLET PO SCH (17:09)
[2024-12-28] MEDS: GABAPENTIN 300 MG CAPSULE PO SCH (17:09)
[2024-12-28 17:26] LABS: GLUCOMETER DEV NAME(LOC) BV3N.2; GLUCOSE,POINT OF CARE 324 MG/DL (70-110)
[2024-12-28 20:30] VITALS: BP 120/61; PULSE 67; RESP 18; TEMP 98.6; O2SAT 98
[2024-12-29] MEDS: LEVOTHYROXINE SODIUM 200 MCG TABLET PO SCH (06:26)
[2024-12-29 07:55] LABS: GLUCOMETER DEV NAME(LOC) BV2S.; GLUCOSE,POINT OF CARE 279 MG/DL (70-110)
[2024-12-29 08:49] VITALS: BP 115/83; PULSE 68; RESP 17; TEMP 98.2; O2SAT 96
[2024-12-29] MEDS: ATORVASTATIN CALCIUM 20 MG TABLET PO SCH (09:35)
[2024-12-29] MEDS: ASPIRIN 81 MG CHEWABLE TABLET PO SCH (09:38)
[2024-12-29] MEDS ORDERED: GuaiFENesin/D-METHORPHAN [SUGAR-FREE] 200-20MG/10 ML SYRUP UDCUP PO PRN (10:15)
[2024-12-29] MEDS ORDERED: DOCUSATE SODIUM 100 MG CAPSULE PO PRN (10:15)
[2024-12-29] MEDS ORDERED: MAG HYDROX/ALUMINUM HYD/SIMETH ES 30 ML SUSPENSION UDCUP PO PRN (10:15)
[2024-12-29] MEDS ORDERED: MAGNESIUM HYDROXIDE SUSPENSION 30 ML UDCUP PO PRN (10:15)
[2024-12-29] MEDS ORDERED: ONDANSETRON 4 MG TABLET PO PRN (10:15)
[2024-12-29] MEDS ORDERED: NICOTINE 14 MG/24 HOUR PATCH TD PRN (10:15)
[2024-12-29] MEDS ORDERED: LOPERAMIDE HCL 2 MG CAPSULE PO PRN (10:15)
[2024-12-29] MEDS ORDERED: PETROLATUM,WHITE 28 GM JELLY TP PRN (10:15)
[2024-12-29] MEDS ORDERED: ALBUTEROL SULFATE HFA 90 MCG/PUFF 8 GM INHALER IH PRN (10:15)
[2024-12-29] MEDS ORDERED: ACETAMINOPHEN 325 MG TABLET PO PRN (10:15)
[2024-12-29] MEDS: BENZTROPINE MESYLATE 1 MG TABLET PO SCH (11:41)
[2024-12-29 20:41] VITALS: BP 108/65; PULSE 64; RESP 17; TEMP 97.8; O2SAT 98
[2024-12-30 07:06] LABS: GLUCOMETER DEV NAME(LOC) BV2S.; GLUCOSE,POINT OF CARE 265 MG/DL (70-110)
[2024-12-30 09:14] VITALS: BP 121/68; PULSE 76; RESP 18; TEMP 98.4; O2SAT 100
[2024-12-30 09:48] LABS: CHOL/HDL RATIO 2.7 (3.9-5.7); LDL CHOL (CALC.) 63.0 mg/dL (0-130)
[2024-12-30 16:55] LABS: GLUCOMETER DEV NAME(LOC) BV2S.; GLUCOSE,POINT OF CARE 207 MG/DL (70-110)
[2024-12-30 20:30] VITALS: BP 128/77; PULSE 66; RESP 17; TEMP 98; O2SAT 100
[2024-12-31 07:01] LABS: GLUCOMETER DEV NAME(LOC) BV2S.; GLUCOSE,POINT OF CARE 229 MG/DL (70-110)
[2024-12-31 08:35] VITALS: BP 117/60; PULSE 67; RESP 18; TEMP 97.1; O2SAT 97
[2024-12-31 17:01] LABS: GLUCOMETER DEV NAME(LOC) BV2S.; GLUCOSE,POINT OF CARE 233 MG/DL (70-110)
[2024-12-31 20:31] VITALS: BP 108/62; PULSE 62; RESP 17; TEMP 99.3; O2SAT 98
[2024-12-31] MEDS: IBUPROFEN 400 MG TABLET PO PRN (22:20)
[2025-01-01 06:26] LABS: GLUCOMETER DEV NAME(LOC) BV2S.; GLUCOSE,POINT OF CARE 200 MG/DL (70-110)
[2025-01-01 09:16] VITALS: BP 140/77; PULSE 60; RESP 17; TEMP 97; O2SAT 96
[2025-01-01] MEDS ORDERED: OLAN5TAB52 PO (11:20)
[2025-01-01] MEDS ORDERED: METF-1211 PO (11:29)
[2025-01-01] MEDS ORDERED: GLIM-8 PO (11:30)
== END 2025-01-01 15:04 | disposition home or self-care (01) | DRG 750 ==
LOC: EMS 12:48 → B2S 12-28 12:17
PROVIDERS: ADMIT Psychiatry & Neurology Child & Adolescent Psychiatry; ATTEND Psychiatry & Neurology Child & Adolescent Psychiatry
PROC: GZ58ZZZ Individual Psychotherapy, Cognitive-Behavioral (ICD-10-PCS; 2024-12-29)
PROC: GZ56ZZZ Individual Psychotherapy, Supportive (ICD-10-PCS; 2024-12-29)
PROC: GZHZZZZ Group Psychotherapy (ICD-10-PCS; principal; 2024-12-31)
DX: F20.0 Paranoid schizophrenia (principal); E11.9 Type 2 diabetes mellitus without complications; E03.9 Hypothyroidism, unspecified; E78.5 Hyperlipidemia, unspecified; I10 Essential (primary) hypertension; Z20.822 Contact with and (suspected) exposure to COVID-19; Z87.891 Personal history of nicotine dependence; Z88.0 Allergy status to penicillin; Z88.8 Allergy status to other drugs, medicaments and biological substances; Z79.899 Other long term (current) drug therapy
CPT/HCPCS: 80048; 80061; 82962; 83036; 84443; 85025; 96372; 99285; G0480; J1200; J2060; J3230